=== PATIENT | female | born 1935 | race Caucasian/White ===

== ENCOUNTER → 2016-12-17 | Outpatient (CLI) | payer MEDICARE ==
[~2016-12-17] MED LIST: AC325T PO; DILT180C54 PO; HYDR12.56 PO; LSNP10T PO; POTA10TA10 PO; SMV20T PO; WARF4TAB3 PO; WRF5T PO
== END ==
LOC: LAB 10:54
PROVIDERS: ATTEND Family Medicine
DX: Z51.81 Encounter for therapeutic drug level monitoring (principal); Z79.01 Long term (current) use of anticoagulants
CPT/HCPCS: 36415; 85610